=== PATIENT | male | born 1995 | race Caucasian/White ===

== ENCOUNTER 2016-09-15 09:15 | Emergency (ER) | payer OTHER ==
[2016-09-15] MEDS ORDERED: TETANUS/DIPHTHERIA/PERTUSSIS 0.5 ML SYRINGE IM ONE ×2 (09:27→09:33)
[2016-09-15] MEDS ORDERED: LIDOCAINE 1% 2 ML VIAL ONE (10:49)
[2016-09-15] MEDS ORDERED: CEPHALEXIN 250 MG CAPSULE PO STA (11:14)
[2016-09-15] MEDS ORDERED: CEPHALEXIN 250 MG CAPSULE PO ONE (11:17)
== END 2016-09-15 11:25 | disposition home or self-care (01) ==
DX: S61.441A Puncture wound with foreign body of right hand, initial encounter (principal); W29.4XXA Contact with nail gun, initial encounter; Y99.0 Civilian activity done for income or pay; Z23 Encounter for immunization; F17.200 Nicotine dependence, unspecified, uncomplicated
CPT/HCPCS: 1040M; 64450; 73130; 90471; 90715; 99283; A9270